=== PATIENT | male | born 1980 ===

== ENCOUNTER 2016-10-02 13:39 | Inpatient (IN) | payer OTHER, SELFPAY ==
[2016-10-02 15:23] LABS: BASO % 1.2 % (0.0-2.0); EOS # 0.2 K/uL (0.0-0.7); EOS % 5.8 % (0.0-4.0); HEMATOCRIT 30.8 % (35.0-51.0); LYMPH # 1.2 K/uL (1.0-4.3); LYMPH % 36.4 % (20.0-40.0); MEAN CORPUSCULAR HEMOGLOBIN 31.5 pg (27.0-31.0); MEAN CORPUSCULAR HGB CONC 34.6 g/dL (33.0-37.0); MEAN PLATELET VOLUME 7.9 fl (7.2-11.7); MONO # 0.4 K/uL (0.0-0.8); MONO % 13.5 % (0.0-10.0); NEUT # 1.4 K/uL (1.8-7.0); NEUT % 43.1 % (50.0-75.0); NRBC % 0.2 % (0.0-0.0); RED CELL DISTRIBUTION WIDTH 13.3 % (11.5-14.5); WHITE BLOOD COUNT 3.2 K/uL (4.8-10.8)
--- NOTE | 2016-10-02 15:24 | RAD ---
HISTORY: chest wall swelling COMPARISON: None available. TECHNIQUE: Chest PA and lateral FINDINGS: LUNGS: No focal consolidation. Please note that chest x-ray has limited sensitivity for the detection of pulmonary masses. PLEURA: No significant pleural effusion identified. No definite pneumothorax . CARDIOVASCULAR: The cardiomediastinal silhouette appears within normal limits of size. OSSEOUS STRUCTURES: No acute osseous abnormality identified. VISUALIZED UPPER ABDOMEN: Unremarkable. OTHER FINDINGS: None. IMPRESSION: No focal consolidation, significant pleural effusion, or definite pneumothorax identified.
[2016-10-02 15:27] LABS: ALB/GLOB RATIO 0.6 (1.0-2.1); ALKALINE PHOSPHATASE 196 U/L (38-126); ALT/SGPT 19 U/L (21-72); AST/SGOT 84 U/L (17-59); BILIRUBIN,TOTAL 1.1 mg/dl (0.2-1.3); BLOOD UREA NITROGEN 17 mg/dl (9-20); CALCIUM 9.2 mg/dL (8.4-10.2); CARBON DIOXIDE 16 mmol/L (22-30); CHLORIDE 108 mmol/L (98-107); GFR AFRICAN-AMERICAN > 60; GLUCOSE,RANDOM 176 mg/dL (75-110); SODIUM 137 mmol/l (132-148); TOTAL PROTEIN 10.5 G/DL (6.3-8.2)
[2016-10-02 15:29] LABS: POTASSIUM 4.5 MMOL/L (3.6-5.0)
[2016-10-02 15:37] LABS: PARTIAL THROMBOPLASTIN TIME 30.7 SECONDS (23.3-32.5)
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
[2016-10-02] MEDS ORDERED: Iohexol 300 100 ML IJ ONE (17:11)
[2016-10-02] MEDS ORDERED: Sodium Chloride 0.9% 100 ML ONE (17:11)
--- NOTE | 2016-10-02 17:52 | CT ---
CT chest with IV contrast Indication: Chest wall hematoma Technique: Contiguous axial images were obtained through the chest with intravenous contrast enhancement. Sagittal and coronal reconstructions were generated and reviewed. This CT exam was performed using 1 or more of the falling dose reduction techniques: Automated exposure control, adjustment of the MAA and/or kV according to patient size, and/or use of iterative reconstruction technique. IV Contrast: 95 mL Omnipaque 300 Radiation dose (DLP): 398.64 MGy-cm. Comparison: Chest x-ray performed earlier the same day. Findings: Visualized portions of the inferior thyroid gland appear unremarkable. The mediastinal and hilar vascular structures appear within normal limits. The heart appears within normal limits of size. Prevascular lymph nodes measuring up to 1.3 cm in short axis. Mediastinal adenopathy measuring up to 1.9 cm in short axis, left peritracheal. No focal consolidation. No pleural effusion. No pneumothorax. No suspicious pulmonary nodules measuring greater than 5 mm. Evidence of osseous abnormality likely osseous destruction involving the manubrium and proximal aspect of the right clavicle with adjacent heterogeneous peripherally hyperdense collection within the anterior right chest measuring approximately 3.4 x 2.3 cm. This collection demonstrates somewhat lobulated borders. Correlate clinically for recent trauma in which case hematoma is a consideration, however abscess is suspected. Prominent bilateral gynecomastia. Limited visualization of the upper abdomen reveals at least 2 probable splenules. Partially imaged mesenteric adenopathy. Otherwise unremarkable. Impression: Evidence of osseous abnormality likely osseous destruction involving the manubrium and proximal aspect of the right clavicle with adjacent heterogeneous peripherally hyperdense collection within the anterior right chest measuring approximately 3.4 x 2.3 cm. This collection demonstrates somewhat lobulated borders. Correlate clinically for recent trauma in which case hematoma is a consideration, however abscess is suspected. Prevascular, mediastinal, and partially imaged mesenteric adenopathy. Findings discussed with Dr. Barone on 10/02/16 at 5:45 p.m.
[2016-10-02] MEDS ORDERED: Piperacillin/Tazobact 3.375 GM in Sodium Chloride 0.9% 100 ML IVPB STA (17:59)
[2016-10-02] MEDS ORDERED: Sodium Chloride 0.9% 1,000 ML IV STA (18:00)
[2016-10-02] MEDS ORDERED: Piperacillin/Tazobact 3.375 gm Inj IVPB ONE (18:15)
--- NOTE | 2016-10-02 20:11 | CP.PCM.CON ---
History of Present Illness - History of Present Illness History of Present Illness: General Surgery - Dr. Guardado 35yo transgender female, biologically male, who presents w/ painful swelling to the R upper chest x1 month. Pt was seen in [facility] in July for similar issue and had I&D with evacuation of a hematoma. During that visit pt. was dx with MRSA Bacteremia and Endocarditis, and also underwent treatment for Syphilis. Pt states that the original site of I&D that she had in July has healed, and approx. 1 month ago she noticed the new bump slightly above her prior incision. She began to experience pain at the site within the past few days so decided to come to the ED. Pt denies any Fevers, Chills, SOB/Chest pains, Drainage or Erythema to the area. PMH: DM, Hep C, Syphilis, MRSA, C diff PSH: I&D of R upper back abscess 6 months ago, I&D of R chest wall hematoma/ abscess 2 months ago Pt denies smoking, ETOH or IVDA within past 3 months. NKDA Review of Systems - Review of Systems All systems: reviewed and no additional remarkable complaints except (as per HPI ) Past Patient History - Past Social History Alcohol: None (Used to drink but no longer) Drugs: Denies - CARDIAC Hx Hypertension: Yes (NONCOMPLIANT WITH MEDICATION) - ENDOCRINE/METABOLIC Hx Diabetes Mellitus Type 2: Yes (NON COMPLIANT WITH MEDICATION) - HEMATOLOGICAL/ONCOLOGICAL Hx Hepatitis C: Yes - PSYCHIATRIC Hx Substance Use: No (DENIED) - SURGICAL HISTORY Other/Comment: 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 - ANESTHESIA Hx Anesthesia: Yes Hx Anesthesia Reactions: No Meds Allergies/Adverse Reactions: Allergies Allergy/AdvReac Type Severity Reaction Status Date / Time No Known Allergies Allergy Verified 10/02/16 20:01 Physical Exam - Constitutional Appears: No Acute Distress - Head Exam Head Exam: ATRAUMATIC, NORMAL INSPECTION, NORMOCEPHALIC - Eye Exam Eye Exam: Normal appearance - Respiratory Exam Respiratory Exam: NORMAL BREATHING PATTERN. absent: Respiratory Distress - Cardiovascular Exam Cardiovascular Exam: REGULAR RHYTHM - Neurological Exam Neurological exam: Alert, Oriented x3 - Psychiatric Exam Psychiatric exam: Normal Affect, Normal Mood - Skin Skin Exam: Dry, Intact Additional comments: R upper chest scar from prior I&D appears well healed Slightly above the scar and overlying the clavicle is an approx 4x4cm area of swelling, fluctuance, no erythema, mild induration Results - Vital Signs Recent Vital Signs: Last Vital Signs Temp 98.0 F 10/02/16 19:32 Pulse 81 10/02/16 19:32 Resp 17 10/02/16 19:32 BP 144/80 10/02/16 19:32 Pulse Ox 99 10/02/16 19:32 - Labs Result Diagrams: 10/02/16 15:05 10/02/16 15:05 - Imaging and Cardiology CT scan - chest Status: Image reviewed by me, Report reviewed by me Assessment & Plan - Assessment and Plan (Free Text) Assessment: 36M w/ hx of MRSA here with recurrent R chest wall abscess v. hematoma -CT w/ evidence of osseous destruction of manubrium and prox. r clavicle w/ 3.4x2.3cm hematoma v. abscess -IV Abx -Recc. Echo for poss. endocarditis -NPO after midnight for I&D in OR tomorrow afternoon DW Dr Geo Pitt PGY2
[2016-10-02] MEDS ORDERED: Lactated Ringer's 1,000 ML IV SCH (22:45)
--- NOTE | 2016-10-02 23:42 | CP.PCM.HP ---
History of Present Illness - History of Present Illness History of Present Illness: Chief Complaint: right chest wall mass/tenderness HPI: PT is a 35 yo transgender female who biologically is male but transitioning to female. According to pt she was in [place] approx. 1 month back and was inpatient for several weeks most likely associated with a hematoma that needed to be I & D along with MRSA Bacteremia and possible Endocarditis. PT now presents to Hospital secondary to a painful swelling located to the R upper chest wall cavity that has been getting progressive in nature for the last month. Pt was based on prior records also underwent treatment for Syphilis. Pt states that the original site of I&D that she had in July has healed, but the site of swelling is just above the old scar. She began to experience pain at the site within the past few days so decided to come to the ED. Pt actively denies any Fevers, Chills, SOB/Chest pains, Drainage or Erythema to the area. PMH: DM, Hep C, Syphilis, MRSA, C diff PSH: I & D of R upper back abscess 6 months ago, I&D of R chest wall hematoma/ abscess 2 months ago 14 ROS - all negative except for pain Social HX: No toxic habits Allergies Allergy/AdvReac Type Severity Reaction Status Date / Time No Known Allergies Allergy Verified 10/02/16 20:01 Last Vital Signs Temp 98.0 F 10/02/16 19:32 Pulse 81 10/02/16 19:32 Resp 17 10/02/16 19:32 BP 144/80 10/02/16 19:32 Pulse Ox 99 10/02/16 19:32 Present on Admission - Present on Admission Any Indicators Present on Admission: No History of DVT/PE: No History of Uncontrolled Diabetes: Yes Urinary Catheter: No Decubitus Ulcer Present: No Review of Systems - Constitutional Constitutional: absent: As Per HPI, Anorexia, Chills, Daytime Sleepiness, Excessive Sweating, Fatigue, Fever, Frequent Falls, Headache, Increased Appetite , Lethargy, Malaise, Night Sweats, Snoring, Sleep Apnea, Weight Gain, Weight Loss, Weakness, Other - EENT Eyes: absent: As Per HPI, Blind Spots, Blurred Vision, Change in Vision, Decreased Night Vision, Diplopia, Discharge, Dry Eye, Exophthalmos, Floaters, Irritation, Itchy Eyes, Loss of Peripheral Vision, Pain, Photophobia, Requires Corrective Lenses, Sees Flashes, Spots in Vision, Tunnel Vision, Other Visual Disturbances, Loss of Vision, Other Ears: absent: As Per HPI, Decreased Hearing, Ear Discharge, Ear Pain, Tinnitus, Abnormal Hearing, Disequilibrium, Dizziness, Other Nose/Mouth/Throat: absent: As Per HPI, Epistaxis, Nasal Congestion, Nasal Discharge, Nasal Obstruction, Nasal Trauma, Nose Pain, Post Nasal Drip, Sinus Pain, Sinus Pressure, Bleeding Gums, Change in Voice, Dental Pain, Dry Mouth, Dysphagia, Halitosis, Hoarsness, Lip Swelling, Mouth Lesions, Mouth Pain, Odynophagia, Sore Throat, Throat Swelling, Tongue Swelling, Facial Pain, Neck Pain, Neck Mass, Other - Cardiovascular Cardiovascular: absent: As Per HPI, Acrocyanosis, Chest Pain, Chest Pain at Rest , Chest Pain with Activity, Claudication, Diaphoresis, Dyspnea, Dyspnea on Exertion, Edema, Irregular Heart Rhythm, Pain Radiating to Arm/Neck/Jaw, Leg Edema, Leg Ulcers, Lightheadedness, Orthopnea, Palpitations, Paroxysmal Nocturnal Dyspnea, Pedal Edema, Radiating Pain, Rapid Heart Rate, Slow Heart Rate, Syncope, Other - Respiratory Respiratory: absent: As Per HPI, Cough, Dyspnea, Hemoptysis, Dyspnea on Exertion , Wheezing, Snoring, Stridor, Pain on Inspiration, Chest Congestion, Excessive Mucous Production, Change in Mucous Color, Pain with Coughing, Other - Gastrointestinal Gastrointestinal: absent: As Per HPI, Abdominal Pain, Belching, Bloating, Change in Bowel Habits, Change in Stool Character, Coffee Ground Emesis, Constipation, Cramping, Diarrhea, Dyspepsia, Dysphagia, Early Satiety, Excessive Flatus, Fecal Incontinence, Heartburn, Hematemesis, Hematochezia, Loose Stools, Melena, Nausea, Odynophagia, Temesmus, Vomiting, Other - Genitourinary Genitourinary: absent: As Per HPI, Change in Urinary Stream, Difficulty Urinating, Dysuria, Flank Pain, Hematuria, Pyuria, Nocturia, Urinary Incontinence, Urinary Frequency, Urinary Hesitance, Urinary Urgency, Voiding Freq/Small Amts, Freq UTI, Hx Renal/Bladder Calculi, Hx /Renal Surgery, Bladder Distension, Other - Musculoskeletal Additional comments: chest wall scar 1 inch and circumferential swelling tense to the touch and painful, no erythema - Neurological Neurological: absent: As Per HPI, Abnormal Gait, Abnormal Hearing, Abnormal Movements, Abnormal Speech, Behavioral Changes, Burning Sensations, Confusion, Convulsions, Disequilibrium, Dizziness, Numbness, Focal Weakness, Frequent Falls , Headaches, Lack of Coordination, Loss of Vision, Memory Loss, Paresthesias, Radicular Pain, Restless Legs, Sensory Deficit, Syncope, Tingling, Tremor, Vertigo, Weakness, Other Visual Disturbances, Other - Psychiatric Psychiatric: absent: As Per HPI, Abnormal Sleep Pattern, Anhedonia, Anxiety, Auditory Hallucinations, Behavioral Changes, Change in Appetite, Change in Libido, Confusion, Depression, Difficulty Concentrating, Hallucinations, Homicidal Ideation, Hopelessness, Irritability, Memory Loss, Mood Swings, Panic Attacks, Paranoia, Suicidal Ideation, Visual Hallucinations, Tactile Hallucinations, Other - Endocrine Endocrine: absent: As Per HPI, Change in Body Appearance, Change in Libido, Cold Intolorance, Deepening of Voice, Excessive Sweating, Fatigue, Flushing, Heat Intolorance, Increase in Ring/Shoe/Hat Size, Palpitations, Polydipsia, Polyphagia, Polyuria, Other - Hematologic/Lymphatic Hematologic: absent: As Per HPI, Easy Bleeding, Easy Bruising, Lymphadenopathy, Other Past Patient History - Past Medical History & Family History Past Medical History?: No - Past Social History Smoking Status: Never Smoked Chewing Tobacco Use: No Cigar Use: No - CARDIAC Hx Hypertension: Yes (NONCOMPLIANT WITH MEDICATION) - ENDOCRINE/METABOLIC Hx Diabetes Mellitus Type 2: Yes (NON COMPLIANT WITH MEDICATION) - HEMATOLOGICAL/ONCOLOGICAL Hx Hepatitis C: Yes - MUSCULOSKELETAL/RHEUMATOLOGICAL Hx Falls: No - PSYCHIATRIC Hx Substance Use: No - SURGICAL HISTORY Other/Comment: 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 - ANESTHESIA Hx Anesthesia: Yes Hx Anesthesia Reactions: No Meds Allergies/Adverse Reactions: Allergies Allergy/AdvReac Type Severity Reaction Status Date / Time No Known Allergies Allergy Verified 10/02/16 20:01 Physical Exam - Constitutional Appears: Well, No Acute Distress - Head Exam Head Exam: ATRAUMATIC, NORMAL INSPECTION, NORMOCEPHALIC - Eye Exam Eye Exam: EOMI, Normal appearance, PERRL Pupil Exam: NORMAL ACCOMODATION, PERRL - ENT Exam ENT Exam: Mucous Membranes Moist, Normal Exam - Neck Exam Neck exam: Positive for: Full Rom, Normal Inspection - Respiratory Exam Respiratory Exam: Clear to Auscultation Bilateral, NORMAL BREATHING PATTERN - Cardiovascular Exam Cardiovascular Exam: REGULAR RHYTHM, +S1, +S2 - GI/Abdominal Exam GI & Abdominal Exam: Normal Bowel Sounds, Soft - Extremities Exam Extremities exam: Positive for: normal inspection - Back Exam Back exam: NORMAL INSPECTION - Neurological Exam Neurological exam: Alert, CN II-XII Intact, Oriented x3 - Psychiatric Exam Psychiatric exam: Normal Affect, Normal Mood - Skin Skin Exam: Dry, Intact, Normal Color Results - Vital Signs Recent Vital Signs: Last Vital Signs Temp 98.4 F 10/02/16 20:52 Pulse 78 10/02/16 20:52 Resp 18 10/02/16 20:52 BP 157/98 H 10/02/16 20:52 Pulse Ox 97 10/02/16 20:52 - Labs Result Diagrams: 10/02/16 15:05 10/02/16 15:05 Labs: Laboratory Results - last 24 hr 10/02/16 21:45 POC Glucose (mg/dL) 143 H Assessment & Plan - Assessment and Plan (Free Text) Assessment: Pt with a recurrying hematoma/abscess which will be taken to OR for I & D. Plan: Admit to medsurg 1) hematoma/abscess- Surgery with Dr. holly - Pt to be getting I & D tomorrow - npo past midnight - hold anticoagulation -continue with scd - pain managment with percocet - IV abx 2) DM- will hold metformin - insulin sliding scale with low dose - npo for now- diabetic diet after surgery 3) HEP C- stable 4) rule out endocarditis - 2 d echo - blood culture - Date & Time Date: 10/02/16 Time: 23:52
[2016-10-02] MEDS ORDERED: Glucagon Recombinant 1 mg Inj IM PRN (23:56)
[2016-10-02] MEDS ORDERED: Dextrose 50% SYRINGE Inj (50 ml) IV PRN (23:56)
[2016-10-03] MEDS: Oxycodone/Acetaminophen 5/325 mg Tab PO PRN (01:54)
[2016-10-03] MEDS: Piperacillin/Tazobact 3.375 GM in Sodium Chloride 0.9% 100 ML IVPB SCH ×4 (04:22→22:14)
[2016-10-03 07:09] LABS: ALB/GLOB RATIO 0.6 (1.0-2.1); ALKALINE PHOSPHATASE 172 U/L (38-126); ALT/SGPT 28 U/L (21-72); AST/SGOT 68 U/L (17-59); BILIRUBIN,TOTAL 0.8 mg/dl (0.2-1.3); BLOOD UREA NITROGEN 15 mg/dl (9-20); CALCIUM 9.3 mg/dL (8.4-10.2); CARBON DIOXIDE 20 mmol/L (22-30); CHLORIDE 108 mmol/L (98-107); GFR AFRICAN-AMERICAN > 60; GLUCOSE,RANDOM 124 mg/dL (75-110); MAGNESIUM 1.5 MG/DL (1.6-2.3); POTASSIUM 3.7 MMOL/L (3.6-5.0); SODIUM 142 mmol/l (132-148); TOTAL PROTEIN 9.2 G/DL (6.3-8.2)
[2016-10-03] MEDS: Insulin Regular 100 units/ml SC SCH ×4 (07:40→22:15)
[2016-10-03] MEDS: Sodium Chloride 0.9% 1,000 ML IV SCH ×3 (10:37→22:00)
--- NOTE | 2016-10-03 12:22 | CP.PCM.PN ---
Subjective - Date & Time of Evaluation Date of Evaluation: 10/03/16 Time of Evaluation: 12:00 - Subjective Subjective: No fever states that she feels fine denies pain no CP no SOB no abd pain Objective - Vital Signs/Intake and Output Vital Signs (last 24 hours): Temp Pulse Resp BP Pulse Ox 98.7 F 78 18 115/71 98 10/03/16 09:00 10/03/16 09:00 10/03/16 09:00 10/03/16 09:00 10/03/16 09:00 - Medications Medications: Current Medications Dextrose (Dextrose 50% Inj) 0 ml IV STAT PRN; Protocol PRN Reason: Hyglycemia Protocol Dextrose (Glutose 15) 0 gm PO ONCE PRN; Protocol PRN Reason: Hypoglycemia Protocol Glucagon (Glucagen Diagnostic Kit) 0 mg IM STAT PRN; Protocol PRN Reason: Hypoglycemia Protocol Vancomycin HCl 1 gm/ Sodium (Chloride) 250 mls @ 166.667 mls/hr IVPB DAILY [facility] Last Admin: 10/03/16 10:31 Dose: 166.667 mls/hr Piperacillin Sod/Tazobactam (Sod 3.375 gm/ Sodium Chloride) 100 mls @ 100 mls/ hr IVPB Q6 [facility] Last Admin: 10/03/16 10:30 Dose: 100 mls/hr Sodium Chloride (Sodium Chloride 0.9%) 1,000 mls @ 100 mls/hr IV .Q10H [facility] Stop: 10/03/16 23:54 Last Admin: 10/03/16 10:37 Dose: 100 mls/hr Insulin Human Regular (Humulin R) 0 units SC ACHS MANNY PRN Reason: Protocol Last Admin: 10/03/16 07:40 Dose: Not Given Oxycodone/Acetaminophen (Percocet 5/325 Mg Tab) 1 tab PO Q6 PRN PRN Reason: Pain, severe (8-10) Stop: 10/05/16 23:55 Last Admin: 10/03/16 01:54 Dose: 1 tab - Labs Labs: 10/03/16 06:20 PT 12.0 SECONDS (9.6-11.2) H 10/02/16 15:05 INR 1.15 (0.92-1.08) H 10/02/16 15:05 APTT 30.7 SECONDS (23.3-32.5) 10/02/16 15:05 - Constitutional Appears: No Acute Distress - Head Exam Head Exam: NORMAL INSPECTION, NORMOCEPHALIC - Eye Exam Eye Exam: EOMI, Normal appearance, PERRL Pupil Exam: NORMAL ACCOMODATION - ENT Exam ENT Exam: Mucous Membranes Moist, Normal External Ear Exam - Neck Exam Neck Exam: Full ROM. absent: Meningismus - Respiratory Exam Respiratory Exam: NORMAL BREATHING PATTERN. absent: Respiratory Distress - Cardiovascular Exam Cardiovascular Exam: REGULAR RHYTHM, +S1, +S2 Additional comments: Chest wall mass , on the right above previous surical incision, mass not fluctuant, doughy, sl tenderness - GI/Abdominal Exam GI & Abdominal Exam: Soft, Normal Bowel Sounds. absent: Tenderness - Extremities Exam Extremities Exam: Full ROM, Normal Capillary Refill. absent: Calf Tenderness, Pedal Edema - Back Exam Back Exam: Full ROM. absent: CVA tenderness (L), CVA tenderness (R), paraspinal tenderness, vertebral tenderness - Neurological Exam Neurological Exam: Alert, Awake, CN II-XII Intact, Oriented x3 Neuro motor strength exam: Left Upper Extremity: 5, Right Upper Extremity: 5, Left Lower Extremity: 5, Right Lower Extremity: 5 - Psychiatric Exam Psychiatric exam: Normal Affect, Normal Mood - Skin Skin Exam: Normal Color, Warm Additional comments: dry, shallow ulcers , some with scabs aundrea seen on the extremities Assessment and Plan (1) Mass of right chest wall Status: Acute (2) Osteomyelitis of clavicle Status: Acute (3) History of endocarditis Status: Chronic (4) Hep C w/o coma, chronic Status: Chronic (5) Skin lesion Status: Chronic (6) DM type 2 (diabetes mellitus, type 2) Status: Chronic (7) DVT prophylaxis Status: Acute - Assessment and Plan (Free Text) Assessment: 36 y/o male, Transexual with hx of recent Endocarditis ( treated at [facility] - under Patient Name : Satish Javier with Daptomycin ), Syphilis -( treated with Howard Pen G x 3 doses), Hep C, DM type II , Hx of Chest Wall Hematoma s/p incision and drainage came bec of recurrence of chest wall mass. CT of Chest: Evidence of osseous abnormality likely osseous destruction involving the manubrium and proximal aspect of the right clavicle with adjacent heterogeneous peripherally hyperdense collection within the anterior right chest measuring approximately 3.4 x 2.3 cm. This collection demonstrates somewhat lobulated borders. Correlate clinically for recent trauma in which case hematoma is a consideration, however abscess is suspected. Prevascular, mediastinal, and partially imaged mesenteric adenopathy. (1) Mass of right chest wall Status: Acute was dx to have Hematoma and had Incision and drainage at [facility] in July Pt signed AMA at [facility] before completion of treatment CT of chest : consistent with Osteo of Manubrium and Clavicle ,abscess Surgery consulted- plan for Iand D today ID consulted: Dr Ravi cont IV Zosyn and Vanco Blood c/s (2) Osteomyelitis of clavicle/Manubrium Status: Acute ID consulted IV Vanco and Zosyn (3) History of endocarditis Status: Chronic Blood c/s unclear if he completed treatment but states that he stayed for more than 1 month and was d/c on PO Doxycycline ff up ECHO ID consulted (4) Hep C w/o coma, chronic Status: Chronic (5) Skin lesion Status: Chronic Pt states that skin lesions on extremities are old and healing and very much better was told this was associated with his 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
[2016-10-03] MEDS ORDERED: Magnesium Sulfate 2 gm/50 ml 2 GM/50 ML BAG IVPB ONE (17:33)
--- NOTE | 2016-10-03 18:39 | CARD ---
APPROVED REPORT EXAM: Two-dimensional and M-mode echocardiogram with Doppler and color Doppler. Other Information Quality : GoodRhythm : NSR INDICATION Infection:Subacute bacterial endocarditis 2D DIMENSIONS IVSd1.02 (0.7-1.1cm)LVDd4.18 (3.9-5.9cm) LVOT Diameter1.91 (1.8-2.4cm)PWd0.95 (0.7-1.1cm) IVSs1.47 (0.8-1.2cm)LVDs2.38 (2.5-4.0cm) FS (%) 43.1 %PWs1.59 (0.8-1.2cm) M-Mode DIMENSIONS Left Atrium (MM)4.38 (2.5-4.0cm)IVSd1.16 (0.7-1.1cm) Aortic Root3.01 (2.2-3.7cm)LVDd4.85 (4.0-5.6cm) Aortic Cusp Exc.2.29 (1.5-2.0cm)PWd1.10 (0.7-1.1cm) IVSs1.74 cmFS (%) 53 % LVDs2.29 (2.0-3.8cm)PWs1.90 cm Mitral Valve MV E Zpkyzekv93.8cm/sMV DECEL [id number] A Qvcxatiu99.4cm/s MV DSB52hbK/A ratio1.0MVA (PHT)2.58cm2 TDI Lateral E' Peak V12.22cm/sMedial E' Peak V6.76cm/sE/Lateral E'6.3 E/Medial E'11.4 Pulmonary Valve PV Peak Abbpwxip307.2cm/s LEFT VENTRICLE The left ventricle is normal size. There is normal left ventricular wall thickness. The left ventricular function is normal. The left ventricular ejection fraction is - 75%. There is normal LV segmental wall motion. Transmitral Doppler flow pattern is abnormal. No left ventricle thrombus noted on this study. There is no ventricular septal defect visualized. There is no left ventricular aneurysm. There is no mass noted in the left ventricle. RIGHT VENTRICLE The right ventricle is normal size. There is normal right ventricular wall thickness. The right ventricular systolic function is normal. ATRIA The left atrium is mildly dilated. There is no thrombus suspected in the left atrium. The right atrium size is normal. The interatrial septum is intact with no evidence for an atrial septal defect. AORTIC VALVE The aortic valve is normal in structure and function. No aortic regurgitation is present. There is no aortic valvular stenosis. There is no aortic valvular vegetation. MITRAL VALVE The mitral valve is normal in structure and function. There is no evidence of mitral valve prolapse. There is no mitral valve stenosis. There is no mitral valve regurgitation noted. TRICUSPID VALVE The tricuspid valve is normal in structure and function. There is no tricuspid valve regurgitation noted. There is no tricuspid valve prolapse or vegetation. There is no tricuspid valve stenosis. PULMONIC VALVE The pulmonary valve is normal in structure and function. There is no pulmonic valvular regurgitation. GREAT VESSELS The aortic root is normal in size. The IVC is normal in size and collapses >50% with inspiration. PERICARDIAL EFFUSION The pericardium appears normal. There is no pleural effusion. <Conclusion> The left ventricle is normal in size and wall thickness. The left ventricular function is normal. The left ventricular ejection fraction is - 75%. The left atrium is mildly dilated. The mitral, aortic and tricuspid valves are normal. No vegetations were seen on any of the valves.
[2016-10-03] MEDS ORDERED: Propofol 10 mg/ml Inj (20 ML) ONE (19:06)
[2016-10-03] MEDS ORDERED: Midazolam 2 MG/2 ML VIAL ONE (19:06)
--- NOTE | 2016-10-03 19:16 | CP.PCM.CON ---
History of Present Illness - History of Present Illness History of Present Illness: admitted for swelling right sternoclavicular joint' Hx of staph endocarditis and syphilis treated at [facility] right chest symptoms were believed secondary to possible OM / septic arthritis results of biopsy findings not available may need re-eval for endocarditis going to [place] tonight for debridement will follow Past Patient History - Past Medical History & Family History Past Medical History?: No - Past Social History Smoking Status: Never Smoked Chewing Tobacco Use: No Cigar Use: No - CARDIAC Hx Hypertension: Yes (NONCOMPLIANT WITH MEDICATION) - ENDOCRINE/METABOLIC Hx Diabetes Mellitus Type 2: Yes (NON COMPLIANT WITH MEDICATION) - HEMATOLOGICAL/ONCOLOGICAL Hx Hepatitis C: Yes - MUSCULOSKELETAL/RHEUMATOLOGICAL Hx Falls: No - PSYCHIATRIC Hx Substance Use: No - SURGICAL HISTORY Other/Comment: 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 - ANESTHESIA Hx Anesthesia: Yes Hx Anesthesia Reactions: No Meds Allergies/Adverse Reactions: Allergies Allergy/AdvReac Type Severity Reaction Status Date / Time No Known Allergies Allergy Verified 10/02/16 20:01 - Medications Medications: Current Medications Dextrose (Dextrose 50% Inj) 0 ml IV STAT PRN; Protocol PRN Reason: Hyglycemia Protocol Dextrose (Glutose 15) 0 gm PO ONCE PRN; Protocol PRN Reason: Hypoglycemia Protocol Glucagon (Glucagen Diagnostic Kit) 0 mg IM STAT PRN; Protocol PRN Reason: Hypoglycemia Protocol Vancomycin HCl 1 gm/ Sodium (Chloride) 250 mls @ 166.667 mls/hr IVPB DAILY [facility] Last Admin: 10/03/16 10:31 Dose: 166.667 mls/hr Piperacillin Sod/Tazobactam (Sod 3.375 gm/ Sodium Chloride) 100 mls @ 100 mls/ hr IVPB Q6 [facility] Last Admin: 10/03/16 16:17 Dose: 100 mls/hr Sodium Chloride (Sodium Chloride 0.9%) 1,000 mls @ 100 mls/hr IV .Q10H [facility] Stop: 10/03/16 23:54 Last Admin: 10/03/16 10:37 Dose: 100 mls/hr Insulin Human Regular (Humulin R) 0 units SC ACHS MANNY PRN Reason: Protocol Last Admin: 10/03/16 16:16 Dose: Not Given Mupirocin (Bactroban Ointment) 1 applic TOP BID [facility] Oxycodone/Acetaminophen (Percocet 5/325 Mg Tab) 1 tab PO Q6 PRN PRN Reason: Pain, severe (8-10) Stop: 10/05/16 23:55 Last Admin: 10/03/16 01:54 Dose: 1 tab Results - Vital Signs Recent Vital Signs: Last Vital Signs Temp 98.8 F 10/03/16 16:31 Pulse 69 10/03/16 16:31 Resp 20 10/03/16 16:31 BP 135/85 10/03/16 16:31 Pulse Ox 99 10/03/16 16:31 - Labs Result Diagrams: 10/02/16 15:05 10/03/16 06:20 Labs: Laboratory Results - last 24 hr 10/02/16 10/03/16 10/03/16 21:45 05:25 06:20 Sodium 142 Potassium 3.7 Chloride 108 H Carbon Dioxide 20 L Anion Gap 18 BUN 15 Creatinine 1.0 Est GFR ( Amer) > 60 Est GFR (Non-Af Amer) > 60 POC Glucose (mg/dL) 143 H 128 H Random Glucose 124 H Hemoglobin A1c Calcium 9.3 Magnesium 1.5 L Total Bilirubin 0.8 AST 68 H ALT 28 Alkaline Phosphatase 172 H Total Protein 9.2 H Albumin 3.6 Globulin 5.6 H Albumin/Globulin Ratio 0.6 L 10/03/16 10/03/16 10/03/16 06:20 11:05 16:06 Sodium Potassium Chloride Carbon Dioxide Anion Gap BUN Creatinine Est GFR ( Amer) Est GFR (Non-Af Amer) POC Glucose (mg/dL) 140 H 112 H Random Glucose Hemoglobin A1c 5.7 Calcium Magnesium Total Bilirubin AST ALT Alkaline Phosphatase Total Protein Albumin Globulin Albumin/Globulin Ratio
[2016-10-03] MEDS ORDERED: Lactated Ringer's 500 ML IV ONE ×2 (19:40→19:50)
--- NOTE | 2016-10-03 19:43 | PCM.SURG1 ---
Surgeon's Initial Post Op Note - Surgeon's Notes Surgeon: Dr. Guardado Broadcast Technician: Dr. Shaffer pGY-[id number] Type of Anesthesia: General LMA Pre-Operative Diagnosis: Right chest wall abscess Operative Findings: See operative note Post-Operative Diagnosis: Chest wall seroma Operation Performed: I& D of chest wall seroma Specimen/Specimens Removed: Serous fluid Estimated Blood Loss: EBL {In ML}: 5 Blood Products Given: N/A Drains Used: No Drains Post-Op Condition: Good Date of Surgery/Procedure: 10/03/16 Time of Surgery/Procedure: 19:42
[2016-10-03] MEDS ORDERED: HYDROmorphone 0.5 mg/0.5 ml ISec IVP PRN (19:58)
[2016-10-03] MEDS: Lactated Ringer's 1,000 ML IV SCH (22:15)
[2016-10-04] MEDS: Piperacillin/Tazobact 3.375 GM in Sodium Chloride 0.9% 100 ML IVPB SCH ×4 (03:39→21:17)
[2016-10-04] MEDS: Oxycodone/Acetaminophen 5/325 mg Tab PO PRN (05:49)
[2016-10-04 06:46] LABS: BASO % 0.6 % (0.0-2.0); EOS # 0.3 K/uL (0.0-0.7); EOS % 7.6 % (0.0-4.0); HEMATOCRIT 28.1 % (35.0-51.0); LYMPH # 1.5 K/uL (1.0-4.3); LYMPH % 38.7 % (20.0-40.0); MEAN CELL VOLUME 90.6 fl (80.0-94.0); MEAN CORPUSCULAR HEMOGLOBIN 31.5 pg (27.0-31.0); MEAN CORPUSCULAR HGB CONC 34.8 g/dL (33.0-37.0); MEAN PLATELET VOLUME 7.5 fl (7.2-11.7); MONO # 0.5 K/uL (0.0-0.8); MONO % 14.4 % (0.0-10.0); NEUT # 1.5 K/uL (1.8-7.0); NEUT % 38.7 % (50.0-75.0); NRBC % 0.1 % (0.0-0.0); RED CELL DISTRIBUTION WIDTH 13.3 % (11.5-14.5); WHITE BLOOD COUNT 3.8 K/uL (4.8-10.8)
[2016-10-04] MEDS: Lactated Ringer's 1,000 ML IV SCH (07:03)
[2016-10-04 07:28] LABS: BLOOD UREA NITROGEN 20 mg/dl (9-20); CALCIUM 8.3 mg/dL (8.4-10.2); CARBON DIOXIDE 19 mmol/L (22-30); CHLORIDE 108 mmol/L (98-107); GFR AFRICAN-AMERICAN > 60; GLUCOSE,RANDOM 144 mg/dL (75-110); MAGNESIUM 1.5 MG/DL (1.6-2.3); SODIUM 137 mmol/l (132-148)
[2016-10-04] MEDS: Insulin Regular 100 units/ml SC SCH ×4 (07:38→22:00)
--- NOTE | 2016-10-04 08:07 | CP.PCM.PN ---
Subjective - Date & Time of Evaluation Date of Evaluation: 10/04/16 Time of Evaluation: 08:04 - Subjective Subjective: General surgery - Dr. Guardado Pt S&E. NAEO. Pt denies any pain. She is s/p I&D of R chest wall seroma. She is tolerating regular diet and ambulating. Dressing removed and incision is C/D/I with nylon suture Objective - Vital Signs/Intake and Output Vital Signs (last 24 hours): Temp Pulse Resp BP Pulse Ox 98.2 F 74 18 131/79 98 10/04/16 07:55 10/04/16 07:55 10/04/16 07:55 10/04/16 07:55 10/04/16 07:55 Intake and Output: 10/04/16 10/04/16 06:59 18:59 Intake Total 450 Balance 450 - Medications Medications: Current Medications Dextrose (Dextrose 50% Inj) 0 ml IV STAT PRN; Protocol PRN Reason: Hyglycemia Protocol Dextrose (Glutose 15) 0 gm PO ONCE PRN; Protocol PRN Reason: Hypoglycemia Protocol Glucagon (Glucagen Diagnostic Kit) 0 mg IM STAT PRN; Protocol PRN Reason: Hypoglycemia Protocol Vancomycin HCl 1 gm/ Sodium (Chloride) 250 mls @ 166.667 mls/hr IVPB DAILY [facility] Last Admin: 10/03/16 10:31 Dose: 166.667 mls/hr Piperacillin Sod/Tazobactam (Sod 3.375 gm/ Sodium Chloride) 100 mls @ 100 mls/ hr IVPB Q6 [facility] Last Admin: 10/04/16 03:39 Dose: 100 mls/hr Lactated Ringer's (Lactated Ringer's) 1,000 mls @ 100 mls/hr IV .Q10H [facility] Last Admin: 10/04/16 07:03 Dose: Not Given Insulin Human Regular (Humulin R) 0 units SC ACHS MANNY PRN Reason: Protocol Last Admin: 10/04/16 07:38 Dose: 1 unit Mupirocin (Bactroban Ointment) 1 applic TOP BID [facility] Oxycodone/Acetaminophen (Percocet 5/325 Mg Tab) 1 tab PO Q6 PRN PRN Reason: Pain, severe (8-10) Stop: 10/05/16 23:55 Last Admin: 10/04/16 05:49 Dose: 1 tab - Labs Labs: 05/12/17 05:55 10/04/16 05:55 PT 12.0 SECONDS (9.6-11.2) H 10/02/16 15:05 INR 1.15 (0.92-1.08) H 10/02/16 15:05 APTT 30.7 SECONDS (23.3-32.5) 10/02/16 15:05 - Constitutional Appears: No Acute Distress - Head Exam Head Exam: ATRAUMATIC, NORMAL INSPECTION - Eye Exam Eye Exam: Normal appearance - Respiratory Exam Respiratory Exam: NORMAL BREATHING PATTERN. absent: Respiratory Distress - Neurological Exam Neurological Exam: Alert, Oriented x3 - Psychiatric Exam Psychiatric exam: Normal Affect, Normal Mood - Skin Skin Exam: Dry, Intact Additional comments: incision C/D/I with nylon suture Assessment and Plan - Assessment and Plan (Free Text) Assessment: 36M s/p I&D of R chest wall seroma, POD #1 -Echo negative for any vegetations -Continue IV Abx -F/U Blood and Wound Cx DW Dr Geo Pitt PGY2
--- NOTE | 2016-10-04 10:10 | CP.PCM.PN ---
Subjective - Date & Time of Evaluation Date of Evaluation: 10/04/16 Time of Evaluation: 10:30 - Subjective Subjective: Patient was seen and examined bedside. Feeling well. Denies any pain, fever, chills.Hemodynamically stable, afebrile. s/p right upper chest wall seroma I&D No acute issues overnight Objective - Vital Signs/Intake and Output Vital Signs (last 24 hours): Temp Pulse Resp BP Pulse Ox 98.2 F 74 18 131/79 98 10/04/16 07:55 10/04/16 07:55 10/04/16 07:55 10/04/16 07:55 10/04/16 07:55 Intake and Output: 10/04/16 10/04/16 06:59 18:59 Intake Total 450 Balance 450 - Medications Medications: Current Medications Dextrose (Dextrose 50% Inj) 0 ml IV STAT PRN; Protocol PRN Reason: Hyglycemia Protocol Dextrose (Glutose 15) 0 gm PO ONCE PRN; Protocol PRN Reason: Hypoglycemia Protocol Glucagon (Glucagen Diagnostic Kit) 0 mg IM STAT PRN; Protocol PRN Reason: Hypoglycemia Protocol Vancomycin HCl 1 gm/ Sodium (Chloride) 250 mls @ 166.667 mls/hr IVPB DAILY [facility] Last Admin: 10/04/16 09:03 Dose: 166.667 mls/hr Piperacillin Sod/Tazobactam (Sod 3.375 gm/ Sodium Chloride) 100 mls @ 100 mls/ hr IVPB Q6 [facility] Last Admin: 10/04/16 09:04 Dose: 100 mls/hr Lactated Ringer's (Lactated Ringer's) 1,000 mls @ 100 mls/hr IV .Q10H [facility] Last Admin: 10/04/16 07:03 Dose: Not Given Insulin Human Regular (Humulin R) 0 units SC ACHS MANNY PRN Reason: Protocol Last Admin: 10/04/16 07:38 Dose: 1 unit Mupirocin (Bactroban Ointment) 1 applic TOP BID [facility] Last Admin: 10/04/16 09:06 Dose: 1 unit Oxycodone/Acetaminophen (Percocet 5/325 Mg Tab) 1 tab PO Q6 PRN PRN Reason: Pain, severe (8-10) Stop: 10/05/16 23:55 Last Admin: 10/04/16 05:49 Dose: 1 tab - Labs Labs: 10/04/16 05:55 10/04/16 05:55 PT 12.0 SECONDS (9.6-11.2) H 10/02/16 15:05 INR 1.15 (0.92-1.08) H 10/02/16 15:05 APTT 30.7 SECONDS (23.3-32.5) 10/02/16 15:05 - Constitutional Appears: Non-toxic, No Acute Distress - Head Exam Head Exam: ATRAUMATIC, NORMAL INSPECTION, NORMOCEPHALIC - Eye Exam Eye Exam: EOMI, Normal appearance, PERRL Pupil Exam: NORMAL ACCOMODATION - ENT Exam ENT Exam: Mucous Membranes Moist, Normal Exam - Neck Exam Neck Exam: Normal Inspection - Respiratory Exam Respiratory Exam: Clear to Ausculation Bilateral, NORMAL BREATHING PATTERN. absent: Rales, Rhonchi, Wheezes - Cardiovascular Exam Cardiovascular Exam: REGULAR RHYTHM, RRR, +S1, +S2. absent: JVD - GI/Abdominal Exam GI & Abdominal Exam: Soft, Normal Bowel Sounds. absent: Distended, Guarding, Tenderness, Rebound - Extremities Exam Extremities Exam: Full ROM, Normal Capillary Refill, Normal Inspection. absent : Pedal Edema - Back Exam Back Exam: NORMAL INSPECTION - Neurological Exam Neurological Exam: Alert, Awake, CN II-XII Intact, Oriented x3 - Psychiatric Exam Psychiatric exam: Normal Affect, Normal Mood - Skin Skin Exam: Dry, Normal Color, Warm Additional comments: right upper chest wall , lateral to sternum and below clavicula small incision 2 cm with sutures in place No skin tenderness, no erythema, no fluctuation dry skin lesions to lower extremities bilaterally Assessment and Plan - Assessment and Plan (Free Text) Assessment: 36 y/o male, Transexual with hx of recent Endocarditis ( treated at [facility] - under Patient Name : Satish Javier with Daptomycin ), Syphilis -( treated with Howard Pen G x 3 doses), Hep C, DM type II , Hx of Chest Wall Hematoma s/p incision and drainage came bec of recurrence of chest wall mass. CT of Chest showed Evidence of osseous abnormality likely osseous destruction involving the manubrium and proximal aspect of the right clavicle with adjacent heterogeneous peripherally hyperdense collection within the anterior right chest measuring approximately 3.4 x 2.3 cm. This collection demonstrates somewhat lobulated borders. Correlate clinically for recent trauma in which case hematoma is a consideration, however abscess is suspected. Prevascular, mediastinal, and partially imaged mesenteric adenopathy. Patient was admitted and started on Vanco and Zosyn for possible abscess. ID and surgery were consulted. Patient underwent I&D of lesion that showed seroma.Both blood and wound cultures are sent. 1. Mass of right chest wall s/p I7D 10/03 that showed Seroma formation Patient has history of Hematoma and had Incision and drainage at [facility] in July Was on 4 weeks IV antibiotics and than patient signed AMA , before completion of treatment surgery and iD on consult cont IV Zosyn and Vanco Blood c/s 2. Osteomyelitis of clavicle/Manubrium suspected ID consulted on IV Vanco and Zosyn Follow up wound and blood cx ESR 101 patient is afebrile and has noWBC but CT chest showed bone destruction on manumbrium and clavicule Ordered bone scan to rule out acute infection 3. History of endocarditis History of MRSA endocarditis and was treated with 4 weeks of Antibiotics while at [facility] hospital Has been on Doxycyclin efor 2 weeks Blood c/s with no growth so far Echo showed no vegetation ID on consult 4. 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 DM type 2 (diabetes mellitus, type 2) Chronic Hgb A1c 5.7 hold Metformin diet accucheck with coverage 7. Leukopenia and Anemia Most likely chronic secondary to bone marrow suppression and hep C 8. DVT prophylaxis SCD for now start ambulation
--- NOTE | 2016-10-04 11:04 | OP ---
PROCEDURE DATE: 10/03/2016 SURGEON: Dr. Guardado. EARLY CHILDHOOD SERVICES COORDINATOR: Dr. Shaffer. ANESTHESIA: General, Dr. Jimenez. PREOPERATIVE DIAGNOSIS: Right chest wall abscess. POSTOPERATIVE DIAGNOSIS: Right chest wall abscess versus seroma. PROCEDURE: Incision and drainage of chest wall abscess. DESCRIPTION OF OPERATION: With the patient in the supine position under adequate general anesthesia, the right upper chest and lower neck were prepped and draped in the usual sterile manner. The patie nt had had a previous incision and drainage in the right pectoral region of an infected hematoma, and swelling was noted just superior to this, closer to the clavicle. Incision was made initially into the previous skin incision and attempt was made to drain into the area of swelling with minimal retur n. An 18 gauge needle was then used to aspirate fluid directly from the area of maximum swelling wit h return of approximately 2 mL of yellow fluid, and this was sent for culture. No additional fluid w as removed from the area, and where the CAT scan had revealed a thick walled collection, possibly a r esidual from the previous infection. At this point, the incision was loosely closed with two 4-0 nyl on sutures and a dry sterile dressing was applied. The patient tolerated the procedure well and downey sferred to the recovery room in stable condition. Estimated blood loss for the procedure was 5 mL. Petra Guardado MD cc: 58 TT: 10/04/2016 11:03:30 va
--- NOTE | 2016-10-04 14:00 | CP.PCM.PN ---
Subjective - Date & Time of Evaluation Date of Evaluation: 10/04/16 Time of Evaluation: 08:00 - Subjective Subjective: hx of endocarditis with MRSA + blood treated at for about 4 weeks before signing out AMA believed to have OM right strenoclavicular joint Objective - Vital Signs/Intake and Output Vital Signs (last 24 hours): Temp Pulse Resp BP Pulse Ox 98.2 F 74 18 131/79 98 10/04/16 07:55 10/04/16 07:55 10/04/16 07:55 10/04/16 07:55 10/04/16 07:55 Intake and Output: 10/04/16 10/04/16 06:59 18:59 Intake Total 450 Balance 450 - Medications Medications: Current Medications Dextrose (Dextrose 50% Inj) 0 ml IV STAT PRN; Protocol PRN Reason: Hyglycemia Protocol Dextrose (Glutose 15) 0 gm PO ONCE PRN; Protocol PRN Reason: Hypoglycemia Protocol Glucagon (Glucagen Diagnostic Kit) 0 mg IM STAT PRN; Protocol PRN Reason: Hypoglycemia Protocol Vancomycin HCl 1 gm/ Sodium (Chloride) 250 mls @ 166.667 mls/hr IVPB DAILY [facility] Last Admin: 10/04/16 09:03 Dose: 166.667 mls/hr Piperacillin Sod/Tazobactam (Sod 3.375 gm/ Sodium Chloride) 100 mls @ 100 mls/ hr IVPB Q6 [facility] Last Admin: 10/04/16 09:04 Dose: 100 mls/hr Lactated Ringer's (Lactated Ringer's) 1,000 mls @ 100 mls/hr IV .Q10H [facility] Last Admin: 10/04/16 07:03 Dose: Not Given Insulin Human Regular (Humulin R) 0 units SC ACHS MANNY PRN Reason: Protocol Last Admin: 10/04/16 13:17 Dose: Not Given Mupirocin (Bactroban Ointment) 1 applic TOP BID [facility] Last Admin: 10/04/16 09:06 Dose: 1 unit Oxycodone/Acetaminophen (Percocet 5/325 Mg Tab) 1 tab PO Q6 PRN PRN Reason: Pain, severe (8-10) Stop: 10/05/16 23:55 Last Admin: 10/04/16 05:49 Dose: 1 tab - Labs Labs: 10/04/16 05:55 10/04/16 05:55 PT 12.0 SECONDS (9.6-11.2) H 10/02/16 15:05 INR 1.15 (0.92-1.08) H 10/02/16 15:05 APTT 30.7 SECONDS (23.3-32.5) 10/02/16 15:05 - Constitutional Appears: Non-toxic, Chronically Ill - Head Exam Head Exam: NORMOCEPHALIC - Eye Exam Eye Exam: PERRL. absent: Scleral icterus - ENT Exam ENT Exam: Mucous Membranes Dry - Neck Exam Neck Exam: absent: Lymphadenopathy - Respiratory Exam Respiratory Exam: Decreased Breath Sounds, Rhonchi - Cardiovascular Exam Cardiovascular Exam: REGULAR RHYTHM, +S1, +S2 - GI/Abdominal Exam GI & Abdominal Exam: Distended, Soft. absent: Tenderness - Rectal Exam Rectal Exam: Deferred - Exam Exam: NORMAL INSPECTION - Extremities Exam Extremities Exam: absent: Calf Tenderness, Pedal Edema - Back Exam Back Exam: absent: CVA tenderness (L), CVA tenderness (R) - Neurological Exam Neurological Exam: Alert, Awake, Oriented x3 - Psychiatric Exam Psychiatric exam: Normal Mood - Skin Skin Exam: Dry, Intact Assessment and Plan (1) Osteomyelitis of clavicle Status: Acute (2) DM type 2 (diabetes mellitus, type 2) Status: Chronic (3) Hep C w/o coma, chronic Status: Chronic (4) History of endocarditis Status: Chronic - Assessment and Plan (Free Text) Assessment: cont iv vanco bone scan
[2016-10-05] MEDS: Piperacillin/Tazobact 3.375 GM in Sodium Chloride 0.9% 100 ML IVPB SCH ×2 (04:52→10:00)
[2016-10-05] MEDS: Insulin Regular 100 units/ml SC SCH ×2 (07:00→10:52)
[2016-10-05 07:57] VITALS: BP 139/85; PULSE 72; RESP 16; TEMP 98.4; O2SAT 98
[2016-10-05 08:24] LABS: HEMATOCRIT 27.2 % (35.0-51.0); MEAN CELL VOLUME 90.2 fl (80.0-94.0); MEAN CORPUSCULAR HEMOGLOBIN 31.9 pg (27.0-31.0); MEAN CORPUSCULAR HGB CONC 35.3 g/dL (33.0-37.0); RED CELL DISTRIBUTION WIDTH 12.9 % (11.5-14.5); WHITE BLOOD COUNT 3.7 K/uL (4.8-10.8)
[2016-10-05 08:43] LABS: BLOOD UREA NITROGEN 17 mg/dl (9-20); CALCIUM 8.2 mg/dL (8.4-10.2); CARBON DIOXIDE 19 mmol/L (22-30); CHLORIDE 109 mmol/L (98-107); GFR AFRICAN-AMERICAN > 60; GLUCOSE,RANDOM 120 mg/dL (75-110); SODIUM 136 mmol/l (132-148)
--- NOTE | 2016-10-05 11:23 | CP.PCM.DIS ---
Provider - Provider Date of Admission: 10/02/16 18:54 Attending physician: Pradeep Knight MD Primary care physician: Dr. Guanako Bhat Consults: Id consult Surgery Time Spent in preparation of Discharge (in minutes): 20 Hospital Course - Lab Results Lab Results: Most Recent Lab Values WBC 3.7 K/uL (4.8-10.8) L 10/05/16 06:00 RBC 3.02 Mil/uL (4.40-5.90) L 10/05/16 06:00 Hgb 9.6 g/dL (12.0-18.0) L 10/05/16 06:00 Hct 27.2 % (35.0-51.0) L 10/05/16 06:00 MCV 90.2 fl (80.0-94.0) 10/05/16 06:00 MCH 31.9 pg (27.0-31.0) H 10/05/16 06:00 MCHC 35.3 g/dL (33.0-37.0) 10/05/16 06:00 RDW 12.9 % (11.5-14.5) 10/05/16 06:00 Plt Count 126 K/uL (130-400) L 10/05/16 06:00 MPV 7.5 fl (7.2-11.7) 10/04/16 05:55 Neut % (Auto) 38.7 % (50.0-75.0) L 10/04/16 05:55 Lymph % (Auto) 38.7 % (20.0-40.0) 10/04/16 05:55 Kinney % (Auto) 14.4 % (0.0-10.0) H 10/04/16 05:55 Eos % (Auto) 7.6 % (0.0-4.0) H 10/04/16 05:55 Baso % (Auto) 0.6 % (0.0-2.0) 10/04/16 05:55 Neut # 1.5 K/uL (1.8-7.0) L 10/04/16 05:55 Lymph # 1.5 K/uL (1.0-4.3) 10/04/16 05:55 Kinney # 0.5 K/uL (0.0-0.8) 10/04/16 05:55 Eos # 0.3 K/uL (0.0-0.7) 10/04/16 05:55 Baso # 0.0 K/uL (0.0-0.2) 10/04/16 05:55 ESR 101 mm/hr (0-15) H 10/04/16 05:55 PT 12.0 SECONDS (9.6-11.2) H 10/02/16 15:05 INR 1.15 (0.92-1.08) H 10/02/16 15:05 APTT 30.7 SECONDS (23.3-32.5) 10/02/16 15:05 Sodium 136 mmol/l (132-148) 10/05/16 06:00 Potassium 4.0 MMOL/L (3.6-5.0) 10/05/16 06:00 Chloride 109 mmol/L (98-107) H 10/05/16 06:00 Carbon Dioxide 19 mmol/L (22-30) L 10/05/16 06:00 Anion Gap 12 (10-20) 10/05/16 06:00 BUN 17 mg/dl (9-20) 10/05/16 06:00 Creatinine 1.2 mg/dL (0.8-1.5) 10/05/16 06:00 Est GFR ( Amer) > 60 10/05/16 06:00 Est GFR (Non-Af Amer) > 60 10/05/16 06:00 POC Glucose (mg/dL) 226 mg/dL (65-110) H 10/05/16 10:47 Random Glucose 120 mg/dL (75-110) H 10/05/16 06:00 Hemoglobin A1c 5.7 % (4.2-6.5) 10/03/16 06:20 Lactic Acid 1.4 MMOL/L (0.7-2.1) 10/02/16 13:05 Calcium 8.2 mg/dL (8.4-10.2) L 10/05/16 06:00 Magnesium 1.5 MG/DL (1.6-2.3) L 10/04/16 05:55 Total Bilirubin 0.8 mg/dl (0.2-1.3) 10/03/16 06:20 AST 68 U/L (17-59) H 10/03/16 06:20 ALT 28 U/L (21-72) 10/03/16 06:20 Alkaline Phosphatase 172 U/L (38-126) H 10/03/16 06:20 C-React Prot High Sens 2.66 mg/L (1.00-3.00) 10/04/16 05:55 Total Protein 9.2 G/DL (6.3-8.2) H 10/03/16 06:20 Albumin 3.6 g/dL (3.5-5.0) 10/03/16 06:20 Globulin 5.6 gm/dL (2.2-3.9) H 10/03/16 06:20 Albumin/Globulin Ratio 0.6 (1.0-2.1) L 10/03/16 06:20 - Hospital Course Hospital Course: 36 y/o male, Transexual with hx of recent Endocarditis ( treated at [facility] - under Patient Name : Satish Javier with Daptomycin ), Syphilis -( treated with Howard Pen G x 3 doses), Hep C, DM type II , Hx of Chest Wall Hematoma s/p incision and drainage came bec of recurrence of chest wall mass. CT of Chest showed Evidence of osseous abnormality likely osseous destruction involving the manubrium and proximal aspect of the right clavicle with adjacent heterogeneous peripherally hyperdense collection within the anterior right chest measuring approximately 3.4 x 2.3 cm. This collection demonstrates somewhat lobulated borders. Correlate clinically for recent trauma in which case hematoma is a consideration, however abscess is suspected. Prevascular, mediastinal, and partially imaged mesenteric adenopathy. Patient was admitted and started on Vanco and Zosyn for possible abscess based on her prior cultures that were positive for MRSA. ID and surgery were consulted. Patient underwent I&D of lesion that showed seroma.Both blood and wound cultures sent. based on her history of prior MRSA endocarditis , Production Director findings with destruction of manumbrium suspcion for osteomyelitis exests even though patient is afebrile , has low WBC count. He has elevated ESR 101. bone scan was ordered but patient does not want to stay in hospital because is feeling anxious, claustrophobic and prefers to go home. He understands potential diagnosis nad would like to have bone scan as out pateint and follow up with ID Doctor DR. RAVI OUT PATIENT WILL PROVIDE PATIENT PRESCRIPTION FOR BOTH CLINDAMYCIN PO FOR 10 DAYS AND BONE SCAN TEST OUT PATIENT ADVISE TO FOLLOW UP WITH id Based on CT findings, elevated 1. Mass of right chest wall s/p I&D 10/03 that showed Seroma formation Patient has history of Hematoma and had Incision and drainage at [facility] in July Was on 4 weeks IV antibiotics and than patient signed AMA , before completion of treatment. has been on doxyxyclin po for the last 2 weeks for some lower extremity cellulitis surgery and ID consulted given IV Zosyn and Vanco Blood c/s- with no growtj wound cx still not reported 2. Osteomyelitis of clavicle/Manubrium suspected ID consulted started IV Vanco and Zosyn blood cx with no growth until now wound cx not reported ESR 101 patient is afebrile and has low WBC but CT chest showed bone destruction on manumbrium and clavicule Ordered bone scan to rule out acute infection but patient would like to sign AMA and come have the test done as outpatient and follow up with Dr. Ravi 3. History of endocarditis History of MRSA endocarditis and was treated with 4 weeks of Antibiotics while at [facility] Has been on Doxycyclin for 2 weeks Blood c/s with no growth so far Echo showed no vegetation ID consulted 4. Hep C Chronic 5.Skin lesion Chronic Pt states that skin lesions on extremities are old and healing and very much better was told this was associated with his Hep C started Bactroban 6. DM type 2 (diabetes mellitus, type 2) Chronic Hgb A1c 5.7 hold Metformin diet accucheck with coverage 7. Leukopenia and Anemia Most likely chronic secondary to bone marrow suppression and hep C 8. DVT prophylaxis SCD for now start ambulation Discharge Exam - Head Exam Head Exam: ATRAUMATIC, NORMAL INSPECTION, NORMOCEPHALIC - Eye Exam Eye Exam: EOMI, Normal appearance, PERRL Pupil Exam: NORMAL ACCOMODATION, PERRL - ENT Exam ENT Exam: Mucous Membranes Moist - Neck Exam Neck exam: Full Rom, Normal Inspection - Respiratory Exam Respiratory Exam: Clear to PA & Lateral, NORMAL BREATHING PATTERN. absent: Rales, Rhonchi, Wheezes - Cardiovascular Exam Cardiovascular Exam: REGULAR RHYTHM, RRR, +S1, +S2. absent: JVD - GI/Abdominal Exam GI & Abdominal Exam: Normal Bowel Sounds, Soft. absent: Distended, Guarding, Rebound, Tenderness - Rectal Exam Rectal Exam: Deferred - Extremities Exam Extremities exam: normal capillary refill, normal inspection, pedal pulses present Additional comments: dry skin lesions to bilateral lower extremities - Back Exam Back exam: NORMAL INSPECTION - Neurological Exam Neurological exam: Alert, CN II-XII Intact, Oriented x3, Reflexes Normal - Psychiatric Exam Psychiatric exam: Normal Affect - Skin Skin Exam: Dry, Normal Color, Warm Discharge Plan - Discharge Medications Prescriptions: Clindamycin [Cleocin] 300 mg PO TID #30 cap - Follow Up Plan Condition: FAIR Disposition: AGAINST MEDICAL ADVICE Patient education suggested?: Yes Additional Instructions: Bone scan as out patient Referrals: Jeremy Ravi MD [Staff Provider] - Guanako Bhat Jr., MD [Family Provider] -
--- NOTE | 2016-10-05 11:24 | CP.PCM.PN ---
Subjective - Date & Time of Evaluation Date of Evaluation: 10/05/16 Time of Evaluation: 09:50 - Subjective Subjective: General Surgery Pt S&E, NAEO. Pt denies any complaints at this time. Dislikes being in the hospital and is thinking about leaving. Objective - Vital Signs/Intake and Output Vital Signs (last 24 hours): Temp Pulse Resp BP Pulse Ox 98.4 F 72 16 139/85 98 10/05/16 07:56 10/05/16 07:56 10/05/16 07:56 10/05/16 07:56 10/05/16 07:56 - Medications Medications: Current Medications Dextrose (Dextrose 50% Inj) 0 ml IV STAT PRN; Protocol PRN Reason: Hyglycemia Protocol Dextrose (Glutose 15) 0 gm PO ONCE PRN; Protocol PRN Reason: Hypoglycemia Protocol Glucagon (Glucagen Diagnostic Kit) 0 mg IM STAT PRN; Protocol PRN Reason: Hypoglycemia Protocol Piperacillin Sod/Tazobactam (Sod 3.375 gm/ Sodium Chloride) 100 mls @ 100 mls/ hr IVPB Q6 [facility] Last Admin: 10/05/16 10:00 Dose: 100 mls/hr Vancomycin HCl 1 gm/ Sodium (Chloride) 250 mls @ 166.667 mls/hr IVPB Q12@0800, 2000 [facility] Last Admin: 10/05/16 08:17 Dose: 166.667 mls/hr Insulin Human Regular (Humulin R) 0 units SC ACHS MANNY PRN Reason: Protocol Last Admin: 10/05/16 10:52 Dose: 2 unit Mupirocin (Bactroban Ointment) 1 applic TOP BID [facility] Last Admin: 10/05/16 10:02 Dose: 1 applic Oxycodone/Acetaminophen (Percocet 5/325 Mg Tab) 1 tab PO Q6 PRN PRN Reason: Pain, severe (8-10) Stop: 10/05/16 23:55 Last Admin: 10/04/16 05:49 Dose: 1 tab - Labs Labs: 10/05/16 06:00 10/05/16 06:00 PT 12.0 SECONDS (9.6-11.2) H 10/02/16 15:05 INR 1.15 (0.92-1.08) H 10/02/16 15:05 APTT 30.7 SECONDS (23.3-32.5) 10/02/16 15:05 - Constitutional Appears: Non-toxic, No Acute Distress - Head Exam Head Exam: ATRAUMATIC, NORMOCEPHALIC - Eye Exam Eye Exam: EOMI. absent: Scleral icterus - Respiratory Exam Respiratory Exam: NORMAL BREATHING PATTERN. absent: Respiratory Distress Additional comments: Incision C/D/I, [address] Swelling in clavicular area not TTP - GI/Abdominal Exam GI & Abdominal Exam: Soft. absent: Distended, Tenderness - Neurological Exam Neurological Exam: Alert, Awake, Oriented x3 - Skin Skin Exam: Dry, Warm Assessment and Plan - Assessment and Plan (Free Text) Assessment: 36 M to F s/p I&D of seroma POD#3 Plan: F/U Cultures Abx per ID No further surgical intervention at this time D/W Dr. Geo Payan PGY3
== END 2016-10-05 13:25 | disposition left against medical advice (07) | DRG 238 ==
LOC: H.ER 13:39 → H.ERHOLD 18:54 → H.MEDSURG1 20:25
PROVIDERS: ADMIT Hospitalist; ATTEND Hospitalist
PROC: 0H95XZZ Drainage of Chest Skin, External Approach (ICD-10-PCS; principal; 2016-10-04)
DX: M86.8X8 Other osteomyelitis, other site (principal); L02.213 Cutaneous abscess of chest wall; E11.69 Type 2 diabetes mellitus with other specified complication; B18.2 Chronic viral hepatitis C; I10 Essential (primary) hypertension; Z91.14 Patient's other noncompliance with medication regimen; A53.9 Syphilis, unspecified; B95.62 Methicillin resistant Staphylococcus aureus infection as the cause of diseases classified elsewhere; F64.9 Gender identity disorder, unspecified; D64.9 Anemia, unspecified